=== PATIENT | male | born 1960 | race Hispanic/Latino ===

== ENCOUNTER → 2024-06-27 | Day surgery (SDC) | payer OTHER ==
[2024-06-22 14:28] LABS: BASOPHILS # (AUTO) 0.1 (0.0-0.1); BASOPHILS % 0.6 % (0.0-1.0); EOSINOPHILS # (AUTO) 0.3 (0.0-0.4); HEMATOCRIT 45.1 % (38.2-49.6); HEMOGLOBIN 15.7 g/dL (14.0-18.0); LYMPHOCYTES # (AUTO) 1.6 (1.0-3.2); LYMPHOCYTES % 19.6 % (18.0-39.1); MEAN CORPUSCULAR HGB CONC 34.8 g/dL (31-35); MONOCYTES # (AUTO) 0.6 (0.2-0.8); MONOCYTES % 7.2 % (4.4-11.3); NEUTROPHILS # (AUTO) 5.8 (2.1-6.9); NEUTROPHILS % 69.4 % (38.7-80.0); PLATELET COUNT 263 x10e3/uL (140-360); RED BLOOD COUNT 5.07 x10e6/uL (4.3-5.7); RED CELL DISTRIBUTION WIDTH 12.5 % (11.7-14.4)
[~2024-06-27] MED LIST: ACETAMINOPHEN 1000 MG/100 ML 100 ML IV ONE; ACETAMINOPHEN 1000 MG/100 ML IV PRN; ASPIRIN81 MG PO; CELECOXIB 100 MG CAP PO SCH; DIPHENHYDRAMINE HCL INJ 50 MG/ML VIAL IV PRN; DOCUSATE SODIUM 100 MG CAP PO PRN; FAMOTIDINE 20 MG/2 ML VIAL IV ONE; FENTANYL CITRATE/PF 100MCG/2 ML INJ ONE; HYDROCODONE/APAP 5MG-325MG TAB PO PRN; HYDROCODONE/APAP 7.5MG-325MG 1 EA TAB PO PRN; LABETALOL HCL 20 ML ONE; LIDOCAINE HCL 2% LOCAL INJ 5 ML SDV VIAL INJ ONE; MELOXICAM7.5 MG PO; METOCLOPRAMIDE HCL 10 MG/2ML VIAL ONE; MIDAZOLAM HCL 2 MG/2 ML VIAL ONE; ONDANSETRON HCL INJ 2MG/ML 2ML 2 MG/ML VIAL IV PRN; ONDANSETRON HCL INJ 2MG/ML 2ML 2 MG/ML VIAL ONE; OZEMPIC0.25 MG/02 SC; PROPOFOL IV EMULSION 10 MG/ML 20 ML VIAL ONE; RIVAROXABAN 10 MG TABLET PO SCH; ROPIVACAINE 246.25 MG, EPINEPHRINE HCL 1:1000 1ML 0.5 MG, CLONIDINE HCL 0.08 MG, KETORO... INJ ONE; SEVOFLURANE INHAL SOLN 250 ML PEN BTL ONE; SODIUM CHLORIDE 0.9% 1000ML 1,000 ML IV SCH
[2024-06-27] MEDS: CEFAZOLIN SODIUM 2 GM ONE (07:02)
[2024-06-27] MEDS: LACTATED RINGER'S 1,000 ML ONE (07:02)
[2024-06-27] MEDS: DEXAMETHASONE SOD PHOS 10 MG/1 ML VIAL ONE (07:03)
[2024-06-27] MEDS: CELECOXIB 200 MG CAP ONE (07:03)
[2024-06-27] MEDS: GABAPENTIN 300 MG CAP ONE (07:03)
[2024-06-27] MEDS: FENTANYL CITRATE/PF 100MCG/2 ML INJ ONE (13:20)
[2024-06-27 15:15] VITALS: BP 135/71; PULSE 80; RESP 18; TEMP 97.1; O2SAT 97
== END | disposition home health service (06) ==
LOC: OR 06:16
PROVIDERS: ATTEND Specialist
DX: M17.32 Unilateral post-traumatic osteoarthritis, left knee (principal); T84.84XA Pain due to internal orthopedic prosthetic devices, implants and grafts, initial encounter; M25.762 Osteophyte, left knee; E66.9 Obesity, unspecified; Y83.8 Other surgical procedures as the cause of abnormal reaction of the patient, or of later complication, without mention of misadventure at the time of the procedure; Z01.810 Encounter for preprocedural cardiovascular examination; Z01.812 Encounter for preprocedural laboratory examination; Z79.1 Long term (current) use of non-steroidal anti-inflammatories (NSAID)
CPT/HCPCS: 27447; 36415; 73560; 85025; 86850; 86900; 93005; 97116; 97161; C1713 ×2; C1776 ×3; J0131; J0171; J0690; J1100; J1885; J2003; J2250; J2405; J2704; J2765; J2795; J3010; J3490; J7121

== ENCOUNTER 2024-07-14 10:30 | Inpatient (IN) | payer OTHER ==
[2024-07-13 11:55] LABS: BASOPHILS % 0.2 % (0.0-1.0); EOSINOPHILS % 0.1 % (0.0-6.0); HEMATOCRIT 37.5 % (38.2-49.6); HEMOGLOBIN 12.5 g/dL (14.0-18.0); LYMPHOCYTES # (AUTO) 0.5 (1.0-3.2); LYMPHOCYTES % 4.1 % (18.0-39.1); MEAN CORPUSCULAR HEMOGLOBIN 30.1 pg (28-32); MEAN CORPUSCULAR HGB CONC 33.3 g/dL (31-35); MEAN CORPUSCULAR VOLUME 90.4 fL (81-99); MONOCYTES # (AUTO) 0.9 (0.2-0.8); MONOCYTES % 7.2 % (4.4-11.3); NEUTROPHILS # (AUTO) 11.3 (2.1-6.9); NEUTROPHILS % 87.9 % (38.7-80.0); PLATELET COUNT 371 x10e3/uL (140-360); RED BLOOD COUNT 4.15 x10e6/uL (4.3-5.7); RED CELL DISTRIBUTION WIDTH 12.8 % (11.7-14.4)
[~2024-07-14] VITALS: Ht 177.8 cm; Wt 119.3 kg
[~2024-07-14 10:30] MED LIST changes: -ACETAMINOPHEN 1000 MG/100 ML 100 ML IV ONE; -ACETAMINOPHEN 1000 MG/100 ML IV PRN; -CELECOXIB 100 MG CAP PO SCH; -DIPHENHYDRAMINE HCL INJ 50 MG/ML VIAL IV PRN; -DOCUSATE SODIUM 100 MG CAP PO PRN; -FAMOTIDINE 20 MG/2 ML VIAL IV ONE; -FENTANYL CITRATE/PF 100MCG/2 ML INJ ONE; +HYDROCODON-ACE1 EAC9 PO; -HYDROCODONE/APAP 5MG-325MG TAB PO PRN; -HYDROCODONE/APAP 7.5MG-325MG 1 EA TAB PO PRN; -LABETALOL HCL 20 ML ONE; -LIDOCAINE HCL 2% LOCAL INJ 5 ML SDV VIAL INJ ONE; -METOCLOPRAMIDE HCL 10 MG/2ML VIAL ONE; -MIDAZOLAM HCL 2 MG/2 ML VIAL ONE; -ONDANSETRON HCL INJ 2MG/ML 2ML 2 MG/ML VIAL IV PRN; -ONDANSETRON HCL INJ 2MG/ML 2ML 2 MG/ML VIAL ONE; -PROPOFOL IV EMULSION 10 MG/ML 20 ML VIAL ONE; -RIVAROXABAN 10 MG TABLET PO SCH; -ROPIVACAINE 246.25 MG, EPINEPHRINE HCL 1:1000 1ML 0.5 MG, CLONIDINE HCL 0.08 MG, KETORO... INJ ONE; -SEVOFLURANE INHAL SOLN 250 ML PEN BTL ONE; -SODIUM CHLORIDE 0.9% 1000ML 1,000 ML IV SCH
[2024-07-14] MEDS ORDERED: FENTANYL CITRATE/PF 100MCG/2 ML INJ ONE ×2 (12:22→12:32)
[2024-07-14] MEDS ORDERED: LIDOCAINE HCL 2% LOCAL INJ 5 ML SDV VIAL INJ ONE (12:22)
[2024-07-14] MEDS ORDERED: PROPOFOL IV EMULSION 10 MG/ML 20 ML VIAL ONE ×2 (12:22→12:36)
[2024-07-14] MEDS ORDERED: ONDANSETRON HCL INJ 2MG/ML 2ML 2 MG/ML VIAL ONE (12:31)
[2024-07-14] MEDS ORDERED: DEXAMETHASONE SOD PHOS INJ 4 MG/ML SDV ONE (12:31)
[2024-07-14] MEDS ORDERED: ESMOLOL HCL 100MG/10ML 10 MG/ML VIAL ONE (12:33)
[2024-07-14] MEDS ORDERED: ACETAMINOPHEN 1000 MG/100 ML 100 ML IV ONE (12:41)
[2024-07-14] MEDS ORDERED: HYDROMORPHONE 2MG/ML ONE (12:44)
[2024-07-14] MEDS ORDERED: DOCUSATE SODIUM 100 MG CAP PO PRN (13:45)
[2024-07-14] MEDS ORDERED: ACETAMINOPHEN 650 MG SUPP PR PRN (13:45)
[2024-07-14] MEDS ORDERED: DIPHENHYDRAMINE HCL INJ 50 MG/ML VIAL IV PRN (13:45)
[2024-07-14] MEDS ORDERED: ONDANSETRON HCL INJ 2MG/ML 2ML 2 MG/ML VIAL IV PRN (13:45)
[2024-07-14] MEDS ORDERED: SEVOFLURANE INHAL SOLN 250 ML PEN BTL ONE (13:59)
[2024-07-14] MEDS: HYDROCODONE/APAP 5MG-325MG TAB PO ONE (17:00)
[2024-07-14 20:00] VITALS: BP 139/78; PULSE 92; RESP 18; TEMP 98.2; O2SAT 98
[2024-07-14 20:28] LABS: ALBUMIN/GLOBULIN RATIO 0.8 (0.8-2.0); ANION GAP 14.5 mmol/L (8-16); BILIRUBIN,TOTAL 0.7 mg/dL (0.2-1.2); CALCIUM 8.6 mg/dL (8.4-10.2); CREATININE, SERUM 0.83 mg/dL (0.72-1.25); POTASSIUM 4.5 mmol/L (3.5-5.1); TOTAL PROTEIN 6.8 g/dL (6.5-8.1)
[2024-07-14] MEDS: ASPIRIN 325 MG TAB PO SCH (20:48)
[2024-07-14] MEDS: CELECOXIB 100 MG CAP PO SCH (20:48)
[2024-07-14 21:57] VITALS: BP 139/78; PULSE 92; RESP 18; TEMP 98.2; O2SAT 98
[2024-07-14] MEDS: HYDROCODONE/APAP 5MG-325MG TAB PO PRN (23:18)
[2024-07-14] MEDS: SODIUM CHLORIDE 0.9% 1000ML 1,000 ML IV SCH (23:44)
[2024-07-15] VITALS (8 sets, daily range): BP systolic 106–144; BP diastolic 57–78; PULSE 74–92; RESP 18–20; TEMP 97.5–98.8; O2SAT 97–99
[2024-07-15] MEDS: Vancomycin IV 1 GM in SODIUM CHLORIDE 0.9% 250ML 250 ML IV SCH (00:06)
[2024-07-15 06:09] LABS: HEMATOCRIT 30.5 % (38.2-49.6); HEMOGLOBIN 10.2 g/dL (14.0-18.0)
[2024-07-15] MEDS: CEFAZOLIN SODIUM 2 GM ONE (07:17)
[2024-07-15] MEDS ORDERED: DEXTROSE 50% SYRINGE 50 ML IV PRN (08:30)
[2024-07-15] MEDS: LACTATED RINGER'S 1,000 ML ONE (10:49)
[2024-07-15] MEDS: HYDROCODONE/APAP 5MG-325MG TAB ONE (10:50)
[2024-07-15] MEDS: Vancomycin IV 1 GM VIAL ONE (10:50)
[2024-07-15] MEDS: SODIUM CHLORIDE 0.9% 250ML 250 ML ONE (10:50)
[2024-07-15] MEDS: INSULIN REGULAR, HUMAN 100 UNIT/1 ML SQ SCH (11:30)
[2024-07-15] MEDS ORDERED: ACETAMINOPHEN 1000 MG/100 ML IV PRN (13:45)
[2024-07-15] MEDS: HYDROCODONE/APAP 7.5MG-325MG 1 EA TAB PO PRN (16:30)
[2024-07-15] MEDS: RIFAMPIN 300 MG CAP PO SCH (20:57)
[2024-07-15] MEDS: ZOLPIDEM TARTRATE 5 MG TAB PO PRN (20:57)
[2024-07-16] VITALS (7 sets, daily range): BP systolic 92–157; BP diastolic 56–88; PULSE 80–92; RESP 18–20; TEMP 97.9–98.6; O2SAT 97–100
[2024-07-16 05:33] LABS: HEMATOCRIT 32.3 % (38.2-49.6); HEMOGLOBIN 10.4 g/dL (14.0-18.0)
[2024-07-17] VITALS (7 sets, daily range): BP systolic 135–148; BP diastolic 63–80; PULSE 89–94; RESP 18–20; TEMP 98.2–99; O2SAT 98–99
[2024-07-18] VITALS (9 sets, daily range): BP systolic 121–153; BP diastolic 61–83; PULSE 80–90; RESP 16–21; TEMP 97.3–98.7; O2SAT 97–100
[2024-07-18] MEDS ORDERED: SODIUM CHLORIDE 0.9% 100 ML ONE (14:42)
[2024-07-19 03:20] VITALS: BP 133/75; PULSE 89; RESP 18; TEMP 97.7; O2SAT 98
[2024-07-19 07:50] VITALS: BP 137/77; PULSE 84; RESP 20; TEMP 98.2; O2SAT 98
[2024-07-19 08:00] VITALS: BP 137/77; PULSE 84; RESP 20; TEMP 98.2; O2SAT 98
[2024-07-19 11:48] VITALS: BP 147/78; PULSE 86; RESP 16; TEMP 98.2; O2SAT 99
[2024-07-19 15:45] VITALS: BP 135/71; PULSE 86; RESP 19; TEMP 97.2; O2SAT 100
== END 2024-07-19 17:00 | disposition home health service (06) | DRG 486 ==
LOC: OR 10:30 → PACU V 13:39 → MED/SURG2 18:50
PROVIDERS: ADMIT Specialist; ATTEND Specialist
PROC: 0SBD0ZZ Excision of Left Knee Joint, Open Approach (ICD-10-PCS; 2024-07-14)
PROC: 0SUW09Z Supplement Left Knee Joint, Tibial Surface with Liner, Open Approach (ICD-10-PCS; 2024-07-14)
PROC: 0SPD09Z Removal of Liner from Left Knee Joint, Open Approach (ICD-10-PCS; principal; 2024-07-14 12:26)
DX: T84.54XA Infection and inflammatory reaction due to internal left knee prosthesis, initial encounter (principal); M00.062 Staphylococcal arthritis, left knee; M00.862 Arthritis due to other bacteria, left knee; B96.89 Other specified bacterial agents as the cause of diseases classified elsewhere; M65.862 Other synovitis and tenosynovitis, left lower leg; Y83.1 Surgical operation with implant of artificial internal device as the cause of abnormal reaction of the patient, or of later complication, without mention of misadventure at the time of the procedure; Y92.009 Unspecified place in unspecified non-institutional (private) residence as the place of occurrence of the external cause; R73.9 Hyperglycemia, unspecified; Z13.1 Encounter for screening for diabetes mellitus; R53.81 Other malaise; E66.9 Obesity, unspecified; Z68.37 Body mass index [BMI] 37.0-37.9, adult; Z79.899 Other long term (current) drug therapy; Z79.82 Long term (current) use of aspirin
CPT/HCPCS: 36415; 36569; 71045; 80053; 80061; 82948; 83036; 85014; 85018; 85025; 87071; 87075; 87186; 87205; C1776; J0690; J1100; J1171; J2003; J2405; J7030; J7050

== ENCOUNTER → 2025-02-13 | Day surgery (SDC) | payer OTHER ==
[~2025-02-13] MED LIST changes: +ACETAMINOPHEN 1000 MG/100 ML 100 ML IV ONE; +ACETAMINOPHEN 1000 MG/100 ML IV PRN; +ASPIRIN 325 MG TAB PO SCH; +BENICAR5 MG PO; +CELECOXIB 100 MG CAP PO SCH; +DIPHENHYDRAMINE HCL INJ 50 MG/ML VIAL IV PRN; +DOCUSATE SODIUM 100 MG CAP PO PRN; +FAMOTIDINE 20 MG/2 ML VIAL IV ONE; +FENTANYL CITRATE/PF 100MCG/2 ML INJ ONE; +HYDROCODONE/APAP 5MG-325MG TAB PO PRN; +HYDROCODONE/APAP 7.5MG-325MG 1 EA TAB ONE; +HYDROCODONE/APAP 7.5MG-325MG 1 EA TAB PO PRN; +IBUPROFEN400 MG PO; +LIDOCAINE HCL 2% LOCAL INJ 5 ML SDV VIAL INJ ONE; +MIDAZOLAM HCL 2 MG/2 ML VIAL ONE; +ONDANSETRON HCL INJ 2MG/ML 2ML 2 MG/ML VIAL IV PRN; +ONDANSETRON HCL INJ 2MG/ML 2ML 2 MG/ML VIAL ONE; +PROPOFOL IV EMULSION 10 MG/ML 20 ML VIAL ONE; +ROPIVACAINE/EPI/CLONIDINE/KET 50 ML SYRINGE INJ ONE; +SEVOFLURANE INHAL SOLN 250 ML PEN BTL ONE; +SODIUM CHLORIDE 0.9% 1000ML 1,000 ML IV SCH
[2025-02-13] MEDS: CEFAZOLIN SODIUM 2 GM ONE (08:59)
[2025-02-13] MEDS: LACTATED RINGER'S 1,000 ML ONE (09:00)
[2025-02-13] MEDS: CELECOXIB 200 MG CAP ONE (09:01)
[2025-02-13] MEDS: GABAPENTIN 300 MG CAP ONE (09:01)
[2025-02-13] MEDS: DEXAMETHASONE SOD PHOS 10 MG/1 ML VIAL ONE (09:01)
[2025-02-13 13:46] VITALS: TEMP 97.4
[2025-02-13] MEDS: LABETALOL HCL 5 MG/ML 20ML VIAL IV ONE ×2 (14:35→14:40)
[2025-02-13 16:15] VITALS: BP 141/81; PULSE 77; RESP 16; O2SAT 98
== END | disposition home health service (06) ==
LOC: OR 08:04
PROVIDERS: ATTEND Specialist
DX: M17.11 Unilateral primary osteoarthritis, right knee (principal); Z96.652 Presence of left artificial knee joint; Z71.82 Exercise counseling; I10 Essential (primary) hypertension; E66.01 Morbid (severe) obesity due to excess calories; Z01.812 Encounter for preprocedural laboratory examination; Z79.1 Long term (current) use of non-steroidal anti-inflammatories (NSAID); Z79.899 Other long term (current) drug therapy; Z68.33 Body mass index [BMI] 33.0-33.9, adult; Z71.3 Dietary counseling and surveillance
CPT/HCPCS: 27447; 73560; 86850; 86900; 97110; 97116; 97161; 97530; C1713 ×2; C1776 ×4; J0131; J1100; J1308; J2003; J2250; J2405; J2704; J3010; J3490; J7121